=== PATIENT | female | born 1930 | race Caucasian/White ===

== ENCOUNTER 2017-01-16 17:01 | Inpatient (IN) | payer MEDICARE, OTHER ==
[~2017-01-16] VITALS: Ht 161.3 cm; Wt 79.4 kg
[2017-01-16] MEDS ORDERED: GABA-827 PO (17:54)
[2017-01-16] MEDS ORDERED: ESOM40CA PO (17:54)
[2017-01-16] MEDS ORDERED: TIOT18CA INH (17:54)
[2017-01-16] MEDS ORDERED: CYCL-259 PO (17:54)
[2017-01-16] MEDS ORDERED: OXYB5TAB7 PO (17:54)
[2017-01-16] MEDS ORDERED: ALBU18HF INH (17:54)
[2017-01-16] MEDS ORDERED: LOSA25TA5 PO (17:54)
[2017-01-16] MEDS ORDERED: IBUP-1223 PO (17:54)
[2017-01-16] MEDS ORDERED: SUCR1ORA5 PO (17:54)
[2017-01-16] MEDS ORDERED: FURO-93 PO (17:54)
[2017-01-16] MEDS ORDERED: FAMO40TA61 PO (17:54)
[2017-01-16 18:19] LABS: HEMATOCRIT 40.3 % (34.6-47.8); HEMOGLOBIN 13.1 g/dL (11.7-16.4); WHITE BLOOD COUNT 7.3 x10^3/uL (3.4-10)
[2017-01-16 18:27] LABS: BLOOD UREA NITROGEN 13 mg/dL (7-18)
[2017-01-16 18:32] LABS: IS PT STATUS REG ER OR PRE ER? YES
[2017-01-16] MEDS ORDERED: NALOXONE 0.4 MG/ML, 1ML ONE (18:33)
[2017-01-16] MEDS ORDERED: ONDANSETRON 2MG/ML, 2ML ONE (18:59)
[2017-01-16] MEDS ORDERED: HYDROmorphone 1 MG/ML, 1ML ONE (18:59)
[2017-01-16] MEDS ORDERED: HYDROmorphone 1 MG/ML, 1ML IVPush PRN (19:00)
[2017-01-16] MEDS ORDERED: ONDANSETRON 2MG/ML, 2ML IVPush ONE (19:00)
[2017-01-16] MEDS ORDERED: SODIUM CHLORIDE FLUSH 10ML SYR IVF ONE (19:00)
[2017-01-16] MEDS ORDERED: SODIUM CHLORIDE 0.9% 1,000ML IVBOLUS ONE (19:00)
[2017-01-16] MEDS ORDERED: POTASSIUM CHLORIDE 20 MEQ TAB.ER.PRT ONE (20:00)
[2017-01-16] MEDS ORDERED: POTASSIUM CHLORIDE 20 MEQ TAB.ER.PRT PO ONE (20:00)
[2017-01-16 21:19] VITALS: BP 153/76
[2017-01-16] MEDS ORDERED: SODIUM CHLORIDE 0.9% 1,000 ML IV SCH (22:05)
[2017-01-16] MEDS ORDERED: DILTIAZEM 5 MG/ML, 5ML IVPush PRN (22:30)
[2017-01-16] MEDS ORDERED: FAMOTIDINE 40 MG TABLET PO SCH (22:30)
[2017-01-16] MEDS ORDERED: ACETAMINOPHEN 325 MG TABLET PO PRN (22:30)
[2017-01-16] MEDS ORDERED: TEMAZEPAM 15 MG CAPSULE PO PRN (22:30)
[2017-01-16] MEDS ORDERED: LABETALOL 5MG/ML, 20ML IVPush PRN (22:30)
[2017-01-16] MEDS ORDERED: ENALAPRILAT 1.25 MG/ML, 2ML IVPush PRN (22:30)
[2017-01-16] MEDS ORDERED: ONDANSETRON ODT 4 MG PO PRN (22:30)
[2017-01-16] MEDS: HEPARIN 5,000 UNITS/ML, 1ML SQ SCH (22:53)
[2017-01-16 23:12] VITALS: BP 153/76
[2017-01-16 23:46] LABS: IS PT STATUS REG ER OR PRE ER? NO
[2017-01-16] MEDS ORDERED: PROMETHAZINE 25 MG/ML, 1ML ONE (23:50)
[2017-01-17] MEDS ORDERED: PROMETHAZINE 25 MG/ML, 1ML IM PRN
[2017-01-17] MEDS: GABAPENTIN 300 MG CAPSULE PO SCH ×2 (00:44→23:25)
[2017-01-17] MEDS: CYCLOBENZAPRINE 10 MG TABLET PO SCH ×5 (00:44→23:26)
[2017-01-17 01:03] VITALS: BP 185/73
[2017-01-17] MEDS: KETOROLAC 30 MG/1 ML IVPush PRN ×3 (02:18→23:32)
[2017-01-17 04:25] LABS: HEMOGLOBIN 12.1 g/dL (11.7-16.4); WHITE BLOOD COUNT 5.5 x10^3/uL (3.4-10)
[2017-01-17 04:34] LABS: BLOOD UREA NITROGEN 12 mg/dL (7-18)
[2017-01-17 04:38] LABS: IS PT STATUS REG ER OR PRE ER? NO
[2017-01-17] MEDS: SUCRALFATE 1 GM/10 ML UDC PO SCH ×4 (06:49→23:26)
[2017-01-17 07:07] VITALS: BP 156/80
[2017-01-17] MEDS: HEPARIN 5,000 UNITS/ML, 1ML SQ SCH ×2 (08:12→16:40)
[2017-01-17] MEDS: OXYBUTYNIN CHLORIDE 5 MG TABLET PO SCH (08:12)
[2017-01-17] MEDS: TEMPLATE NON-FORMULARY MED. (Albuterol Sulfate (Ventolin Hfa) 2 PUFF(S)) INH SCH ×2 (08:13→21:00)
[2017-01-17] MEDS: SENNA/DOCUSATE TABLET PO SCH (08:13)
[2017-01-17] MEDS: PANTOPROZOLE 40MG TABLET PO SCH ×2 (08:13→23:26)
[2017-01-17] MEDS: LOSARTAN 25MG TABLET PO SCH (08:13)
[2017-01-17] MEDS ORDERED: FUROSEMIDE 20 MG TABLET PO SCH (09:00)
[2017-01-17] MEDS: IPRATROPIUM 0.5 MG/2.5 ML INHA HHN SCH ×3 (09:00→21:00)
[2017-01-17] MEDS: CEFTRIAXONE PMX 2GM/50ML 50 ML IV SCH (10:23)
[2017-01-17] MEDS: METRONIDAZOLE PMX 500MG/100ML 100 ML IV SCH ×2 (11:34→19:37)
[2017-01-17 14:09] VITALS: BP 151/72
[2017-01-17 18:50] VITALS: BP 135/71
[2017-01-18 00:55] VITALS: BP 108/62
[2017-01-18] MEDS ORDERED: HYDROmorphone 1 MG/ML, 1ML ONE (01:04)
[2017-01-18] MEDS ORDERED: HYDROmorphone 1 MG/ML, 1ML IV PRN ×2 (01:04→05:04)
[2017-01-18] MEDS: METRONIDAZOLE PMX 500MG/100ML 100 ML IV SCH ×3 (01:11→16:52)
[2017-01-18] MEDS: HEPARIN 5,000 UNITS/ML, 1ML SQ SCH ×4 (01:12→22:58)
[2017-01-18] MEDS: SODIUM CHLORIDE 0.9% 1,000 ML IV SCH ×3 (01:13→22:58)
[2017-01-18] MEDS: IPRATROPIUM 0.5 MG/2.5 ML INHA NPPB SCH ×3 (03:00→16:00)
[2017-01-18 04:56] LABS: HEMATOCRIT 35.5 % (34.6-47.8); HEMOGLOBIN 11.6 g/dL (11.7-16.4)
[2017-01-18 05:00] LABS: BLOOD UREA NITROGEN 10 mg/dL (7-18)
[2017-01-18 05:03] LABS: ASPARTATE AMINO TRANSFERASE 115 U/L (15-37)
[2017-01-18] MEDS: SUCRALFATE 1 GM/10 ML UDC PO SCH ×4 (06:40→20:48)
[2017-01-18 06:58] VITALS: BP 130/71
[2017-01-18] MEDS: CEFTRIAXONE PMX 2GM/50ML 50 ML IV SCH (08:20)
[2017-01-18] MEDS: OXYBUTYNIN CHLORIDE 5 MG TABLET PO SCH (08:21)
[2017-01-18] MEDS: CYCLOBENZAPRINE 10 MG TABLET PO SCH ×3 (08:21→20:48)
[2017-01-18] MEDS: LOSARTAN 25MG TABLET PO SCH (08:21)
[2017-01-18] MEDS: PANTOPROZOLE 40MG TABLET PO SCH ×2 (08:21→20:47)
[2017-01-18] MEDS: SENNA/DOCUSATE TABLET PO SCH (08:21)
[2017-01-18] MEDS: TEMPLATE NON-FORMULARY MED. (Albuterol Sulfate (Ventolin Hfa) 2 PUFF(S)) INH SCH ×2 (08:23→21:00)
[2017-01-18] MEDS: HYDROcodone/APAP 5/325 TABLET PO PRN ×2 (13:31→22:59)
[2017-01-18 14:12] VITALS: BP 158/76
[2017-01-18 19:55] VITALS: BP 135/75
[2017-01-18] MEDS: GABAPENTIN 300 MG CAPSULE PO SCH (20:47)
[2017-01-18 22:37] VITALS: BP 165/79
[2017-01-19] MEDS: METRONIDAZOLE PMX 500MG/100ML 100 ML IV SCH ×3 (01:43→17:06)
[2017-01-19 01:46] VITALS: BP 133/62
[2017-01-19 05:00] LABS: BLOOD UREA NITROGEN 6 mg/dL (7-18)
[2017-01-19 05:02] LABS: HEMATOCRIT 34.7 % (34.6-47.8); HEMOGLOBIN 11.2 g/dL (11.7-16.4); WHITE BLOOD COUNT 8.1 x10^3/uL (3.4-10)
[2017-01-19 05:12] LABS: IS PT STATUS REG ER OR PRE ER? NO
[2017-01-19] MEDS: SUCRALFATE 1 GM/10 ML UDC PO SCH ×4 (06:15→20:45)
[2017-01-19] MEDS: ALBUTEROL/IPRATROPIUM 2.5MG/0.5MG, 3 ML NPPB SCH ×4 (06:50→20:00)
[2017-01-19 07:15] VITALS: BP 135/76
[2017-01-19] MEDS: SODIUM CHLORIDE 0.9% 1,000 ML IV SCH ×2 (10:00→20:46)
[2017-01-19] MEDS: OXYBUTYNIN CHLORIDE 5 MG TABLET PO SCH (10:00)
[2017-01-19] MEDS: CYCLOBENZAPRINE 10 MG TABLET PO SCH ×3 (10:00→20:45)
[2017-01-19] MEDS: PANTOPROZOLE 40MG TABLET PO SCH ×2 (10:00→20:45)
[2017-01-19] MEDS: SENNA/DOCUSATE TABLET PO SCH (10:00)
[2017-01-19] MEDS: LOSARTAN 25MG TABLET PO SCH (10:00)
[2017-01-19] MEDS: HEPARIN 5,000 UNITS/ML, 1ML SQ SCH ×2 (10:01→17:07)
[2017-01-19] MEDS: CEFTRIAXONE PMX 2GM/50ML 50 ML IV SCH (10:23)
[2017-01-19] MEDS ORDERED: BISACODYL 10 MG SUPP PR PRN (15:00)
[2017-01-19] MEDS ORDERED: POLYETHYLENE GLYCOL 17 GM PACKET PO PRN (15:00)
[2017-01-19 15:16] VITALS: BP 128/79
[2017-01-19 19:35] VITALS: BP 158/86
[2017-01-19] MEDS: GABAPENTIN 300 MG CAPSULE PO SCH (20:45)
[2017-01-20] MEDS: METRONIDAZOLE PMX 500MG/100ML 100 ML IV SCH ×3 (00:58→16:18)
[2017-01-20 01:25] VITALS: BP 151/85
[2017-01-20] MEDS: HYDROcodone/APAP 5/325 TABLET PO PRN ×2 (01:44→21:32)
[2017-01-20 04:35] LABS: HEMATOCRIT 35.3 % (34.6-47.8); HEMOGLOBIN 11.6 g/dL (11.7-16.4); WHITE BLOOD COUNT 5.9 x10^3/uL (3.4-10)
[2017-01-20 04:56] LABS: ASPARTATE AMINO TRANSFERASE 29 U/L (15-37); BLOOD UREA NITROGEN 5 mg/dL (7-18)
[2017-01-20] MEDS: SUCRALFATE 1 GM/10 ML UDC PO SCH ×4 (06:33→21:22)
[2017-01-20] MEDS: HEPARIN 5,000 UNITS/ML, 1ML SQ SCH ×3 (06:34→21:23)
[2017-01-20] MEDS: SODIUM CHLORIDE 0.9% 1,000 ML IV SCH (06:34)
[2017-01-20] MEDS: ALBUTEROL/IPRATROPIUM 2.5MG/0.5MG, 3 ML NPPB SCH ×3 (06:45→19:38)
[2017-01-20 08:11] VITALS: BP 133/68
[2017-01-20] MEDS: CEFTRIAXONE PMX 2GM/50ML 50 ML IV SCH (08:17)
[2017-01-20] MEDS: LOSARTAN 25MG TABLET PO SCH (08:21)
[2017-01-20] MEDS: SENNA/DOCUSATE TABLET PO SCH (08:21)
[2017-01-20] MEDS: OXYBUTYNIN CHLORIDE 5 MG TABLET PO SCH (08:21)
[2017-01-20] MEDS: CYCLOBENZAPRINE 10 MG TABLET PO SCH ×3 (08:21→21:23)
[2017-01-20] MEDS: PANTOPROZOLE 40MG TABLET PO SCH ×2 (08:21→21:22)
[2017-01-20 14:59] VITALS: BP 127/62
[2017-01-20] MEDS ORDERED: POTASSIUM CHLORIDE 20 MEQ TAB.ER.PRT PO ONE (16:00)
[2017-01-20 18:36] VITALS: BP 151/77
[2017-01-20] MEDS: GABAPENTIN 300 MG CAPSULE PO SCH (21:22)
[2017-01-21] MEDS: METRONIDAZOLE PMX 500MG/100ML 100 ML IV SCH ×3 (01:22→17:46)
[2017-01-21 03:10] VITALS: BP 140/69
[2017-01-21] MEDS: HEPARIN 5,000 UNITS/ML, 1ML SQ SCH ×3 (05:37→22:00)
[2017-01-21] MEDS: SUCRALFATE 1 GM/10 ML UDC PO SCH ×4 (05:37→21:58)
[2017-01-21 05:44] LABS: HEMATOCRIT 34.1 % (34.6-47.8); HEMOGLOBIN 11.4 g/dL (11.7-16.4); WHITE BLOOD COUNT 5.6 x10^3/uL (3.4-10)
[2017-01-21 06:29] LABS: ASPARTATE AMINO TRANSFERASE 30 U/L (15-37); BLOOD UREA NITROGEN 4 mg/dL (7-18)
[2017-01-21 08:49] VITALS: BP 139/69
[2017-01-21] MEDS: ALBUTEROL/IPRATROPIUM 2.5MG/0.5MG, 3 ML NPPB SCH ×2 (09:50→20:24)
[2017-01-21] MEDS: CEFTRIAXONE PMX 2GM/50ML 50 ML IV SCH (10:58)
[2017-01-21] MEDS: PANTOPROZOLE 40MG TABLET PO SCH ×2 (10:59→21:59)
[2017-01-21] MEDS: SENNA/DOCUSATE TABLET PO SCH (10:59)
[2017-01-21] MEDS: OXYBUTYNIN CHLORIDE 5 MG TABLET PO SCH (10:59)
[2017-01-21] MEDS: LOSARTAN 25MG TABLET PO SCH (11:00)
[2017-01-21] MEDS: CYCLOBENZAPRINE 10 MG TABLET PO SCH ×3 (11:00→21:59)
[2017-01-21 14:03] VITALS: BP 130/74
[2017-01-21] MEDS ORDERED: FUROSEMIDE 40 MG/4 ML IV ONE (18:30)
[2017-01-21 18:45] VITALS: BP 140/71
[2017-01-21] MEDS: GABAPENTIN 300 MG CAPSULE PO SCH (21:58)
[2017-01-22 00:45] VITALS: BP 141/74
[2017-01-22] MEDS: METRONIDAZOLE PMX 500MG/100ML 100 ML IV SCH ×2 (01:18→11:57)
[2017-01-22 05:31] LABS: BLOOD UREA NITROGEN 4 mg/dL (7-18)
[2017-01-22 05:36] LABS: ASPARTATE AMINO TRANSFERASE 46 U/L (15-37)
[2017-01-22 05:42] LABS: HEMATOCRIT 34.8 % (34.6-47.8); HEMOGLOBIN 11.6 g/dL (11.7-16.4); WHITE BLOOD COUNT 5.5 x10^3/uL (3.4-10)
[2017-01-22] MEDS: SUCRALFATE 1 GM/10 ML UDC PO SCH ×2 (06:00→11:58)
[2017-01-22] MEDS: HEPARIN 5,000 UNITS/ML, 1ML SQ SCH (06:01)
[2017-01-22 07:23] VITALS: BP 132/70
[2017-01-22] MEDS ORDERED: METR500T PO (07:26)
[2017-01-22] MEDS ORDERED: CIPR500T87 PO (07:26)
[2017-01-22] MEDS: SENNA/DOCUSATE TABLET PO SCH (09:00)
[2017-01-22] MEDS: ALBUTEROL/IPRATROPIUM 2.5MG/0.5MG, 3 ML NPPB SCH (09:40)
[2017-01-22] MEDS: PANTOPROZOLE 40MG TABLET PO SCH (09:49)
[2017-01-22] MEDS: CYCLOBENZAPRINE 10 MG TABLET PO SCH (09:49)
[2017-01-22] MEDS: LOSARTAN 25MG TABLET PO SCH (09:50)
[2017-01-22] MEDS: OXYBUTYNIN CHLORIDE 5 MG TABLET PO SCH (09:50)
[2017-01-22] MEDS: CEFTRIAXONE PMX 2GM/50ML 50 ML IV SCH (09:50)
[2017-01-22 15:48] VITALS: BP 155/85
== END 2017-01-22 17:17 | disposition home health service (06) | DRG 391 ==
LOC: ED 18:24 → EDIP 18:33 → OBSVTOIN 18:33 → INTOOBSV 18:33 → 5SO 20:43 → 4WST 01-18 23:30
PROVIDERS: ADMIT Internal Medicine; ATTEND Internal Medicine
DX: K52.9 Noninfective gastroenteritis and colitis, unspecified (principal); E43 Unspecified severe protein-calorie malnutrition; I11.9 Hypertensive heart disease without heart failure; J44.9 Chronic obstructive pulmonary disease, unspecified; D64.9 Anemia, unspecified; E78.5 Hyperlipidemia, unspecified; E87.6 Hypokalemia; I44.7 Left bundle-branch block, unspecified; K59.00 Constipation, unspecified; R73.9 Hyperglycemia, unspecified; M19.90 Unspecified osteoarthritis, unspecified site; M79.7 Fibromyalgia; M81.0 Age-related osteoporosis without current pathological fracture; Z80.0 Family history of malignant neoplasm of digestive organs; Z68.30 Body mass index [BMI] 30.0-30.9, adult; Z88.2 Allergy status to sulfonamides; Z88.5 Allergy status to narcotic agent; Z83.3 Family history of diabetes mellitus; Z90.49 Acquired absence of other specified parts of digestive tract; Z90.710 Acquired absence of both cervix and uterus
CPT/HCPCS: 36415; 76700; 80048; 80053; 81001; 82040; 83605; 83735; 84100; 84484; 85025; 87040; 93005; 94640; 96361; 96374; 96375; J0696; J1170; J1644; J1885; J1940; J2405; J2550; J7620; J7644; Q0162; J7030